=== PATIENT | male | born 1985 | race Two or more races ===

== ENCOUNTER 2017-11-21 15:48 | Emergency (ER) | payer SELFPAY ==
[2017-11-21] MEDS: OXYMETAZOLINE 0.05% NASAL SPRAY 30ML BOTTLE. NS (16:08)
[2017-11-21] MEDS ORDERED: DIPHTH,PERTUSS(ACELL),TET TOX 0.5 ML DISP.SYRIN. VAX IM (17:00)
[2017-11-21] MEDS ORDERED: LIDOCAINE WITH 8.4% SOD BICARB 3 ML DISP.SYRIN. INJ (17:00)
== END 2017-11-21 17:00 | disposition home or self-care (01) ==
LOC: ER 17:00
DX: R04.0 Epistaxis (principal)
CPT/HCPCS: 99282; 99283

== ENCOUNTER 2017-12-04 21:33 | Emergency (ER) | payer SELFPAY | END 2017-12-04 21:50 | disposition left against medical advice (07) | LOC: ER 21:33 | DX: R04.0 Epistaxis (principal); Z53.21 Procedure and treatment not carried out due to patient leaving prior to being seen by health care provider ==